=== PATIENT | female | born 1970 | race African-American/Black ===

== ENCOUNTER 2019-06-25 06:05 | Day surgery (SDC) | payer OTHER ==
[2019-06-24 17:16] VITALS: BMI 41.1
[2019-06-25] MEDS ORDERED: BUPIVACAINE HCL/PF 0.5% (5 MG/ML) 30 ML VIAL IJ ONE (07:11)
[2019-06-25] MEDS ORDERED: DEXAMETHASONE SOD PHOSPHATE/PF 10 MG/ML SDV ONE (07:11)
[2019-06-25] MEDS ORDERED: ROPIVACAINE HCL 0.5% 30ML VIAL ONE (07:11)
[2019-06-25] MEDS ORDERED: PROPOFOL 20 ML ONE (07:19)
[2019-06-25] MEDS ORDERED: SUCCINYLCHOLINE CHLORIDE 200 MG/10 ML SYRINGE ONE (07:20)
[2019-06-25] MEDS ORDERED: MIDAZOLAM HCL 2 MG/2 ML SINGLE DOSE VIAL ONE ×2 (07:20)
--- NOTE | 2019-06-25 07:52 | HP ---
Satellite [facility] - Past Medical History Allergies/Adverse Reactions: Allergies Allergy/AdvReac Type Severity Reaction Status Date / Time No Known Allergies Allergy Verified 06/24/19 17:16 ...LMP: 06/03/19 - Current Medications Current Medications: Home Medications Medication Instructions Recorded Atorvastatin Ca [Lipitor] 20 mg PO DAILY 06/24/19 Metformin HCl [Metformin HCl ER] 500 mg PO DAILY 06/24/19 Satellite Physical Exam - Physical Examination Vital Signs: Vital Signs Period Temp Pulse Resp BP Sys/Payne Pulse Ox Last 24 Hr 98.0 F 77 18 115/50 98
--- NOTE | 2019-06-25 08:13 | HP ---
Satellite [facility] - Chief Complaint Chief Complaint: right shoulder pain History Source: Patient - Past Medical History Allergies/Adverse Reactions: Allergies Allergy/AdvReac Type Severity Reaction Status Date / Time No Known Allergies Allergy Verified 06/24/19 17:16 ...LMP: 06/03/19 - Current Medications Current Medications: Home Medications Medication Instructions Recorded Atorvastatin Ca [Lipitor] 20 mg PO DAILY 06/24/19 Metformin HCl [Metformin HCl ER] 500 mg PO DAILY 06/24/19 Satellite Physical Exam - Physical Examination Vital Signs: Vital Signs Period Temp Pulse Resp BP Sys/Payne Pulse Ox Last 24 Hr 98.0 F 77 18 115/50 98 Extremities: Other (weakness with TDA right shoulder) Satellite Impression/Plan - Impression/Plan Impression: impingement right shoulder with posssible RC tear Operative Procedure: arthroscopy right shoulder with decompression and possible RC repair Date to be Performed: 06/25/19
[2019-06-25] MEDS ORDERED: ceFAZolin SODIUM 1 GM VIAL ONE (08:30)
[2019-06-25] MEDS ORDERED: ceFAZolin SODIUM 1 GM VIAL IVPB ONE (08:36)
[2019-06-25] MEDS ORDERED: DEXAMETHASONE SOD PHOSPHATE 4 MG/1 ML VIAL ONE (08:57)
--- NOTE | 2019-06-25 09:25 | OP ---
Operative Note - Note: Operative Date: 06/25/19 ([facility]) Pre-Operative Diagnosis: right shoulder rct Operation: right shoulder arthroscopy with RCR, SAD Post-Operative Diagnosis: Same as Pre-op Surgeon: Robert Smith Print Support Specialist: Sahil Garcia Anesthesiologist/CRAYON SORTING MACHINE FEEDER: Kuldip Tamayo Anesthesia: General, Local Specimens Removed: shavings Estimated Blood Loss (mls): 5 Operative Report Dictated: Yes
[2019-06-25] MEDS ORDERED: oxyCODONE HCL 5 MG TABLET PO PRN (09:33)
[2019-06-25] MEDS ORDERED: ONDANSETRON 4 MG/2 ML VIAL IVPUSH PRN (09:33)
[2019-06-25] MEDS ORDERED: LACTATED RINGERS SOLUTION 1,000 ML IV SCH (09:45)
[2019-06-25 10:52] VITALS: TEMP 97.4
[2019-06-25 12:55] VITALS: BP 129/74; PULSE 75
--- NOTE | 2019-06-25 14:45 | SPEC ---
DATE OF OPERATION: 06/25/2019 PREOPERATIVE DIAGNOSIS: Right rotator cuff tear. POSTOPERATIVE DIAGNOSIS: Right rotator cuff tear. PROCEDURE: Arthroscopy, right shoulder, subacromial decompression, and arthroscopic right rotator cuff repair with SpeedBridge. SURGICAL ATTENDING: Robert Smith MD COIL ASSEMBLER: JORDAN More ANESTHESIA: Regional and general. CLOSURE: An Arthrex SpeedBridge for rotator cuff, 3-0 nylon for skin. ESTIMATED BLOOD LOSS: Negligible. COMPLICATIONS: None. CONDITION: To the recovery room in stable condition. DESCRIPTION OF PROCEDURE: The patient was taken to the operating room on June 25, 2019. General and regional anesthesia was administered by the anesthesiologist. IV Kefzol was administered prophylactically prior to the case. The patient was placed in the beach chair position with all prominences well padded. The right shoulder area was prepped and draped in the usual sterile fashion. First, a diagnostic arthroscopy of the glenohumeral joint was made. Posterior portal was made 2 fingerbreadths below the acromion with a 15 blade followed by a blunt trocar. Circumferential exam of the glenohumeral joint revealed the following: Intact labrum circumferentially, intact glenoid and humeral head articular cartilage, intact biceps and biceps anchor, intact subscapularis through its insertion. Looking superiorly, there was a large rotator cuff tear. The fluid was drained from the shoulder, and the trocar was removed. The posterior trocar was redirected in the subacromial space. An accessory lateral and anterior portal were made with a 15 blade followed by a blunt trocar. The lateral portal was used as the working portal. Through this portal, an ArthroCare device was applied. This was used to debride the soft tissue in the subacromial aspect. The coracoacromial ligament was identified and detached off the anterior acromion and was visualized to drop inferiorly and was further debrided. The bone on the undersurface of the acromion was burred to the appropriate level giving appropriate height for the rotator cuff beneath. Looking inferiorly, there was a large rotator cuff tear, soft tissue encasing the rotator cuff, and the deltoid recess was debrided using ArthroCare device and the shaver. The bed on the greater tuberosity was burred to give a good bed for the double row SpeedBridge repair. A grasper was used to ensure that the rotator cuff was able to be reduced sufficiently to the greater tuberosity. The rotator cuff was freed on the bursal and the articular surface to allow more excursion of the tendon. Two anchors preloaded with FiberTape suture were placed on the articular margin, one more anteriorly, one more posteriorly. They were shuttled through the anterior portal with a grasper. Each limb was individually passed through the rotator cuff, two anteriorly and two posteriorly. One anterior limb and one posterior limb was delivered through the lateral portal. They were placed through the eyelet hole of the more lateral anchor, which was then malleted into place much more laterally, reducing the rotator cuff to the greater tuberosity. The swivel was then screwed into place. The sutures were then cut flush with the bone. Next, one anterior and one posterior limb that was remaining were shuttled from the anterior to the lateral portal. The sutures were placed through the eyelet hole of the anterior anchor, which was malleted on the anterior aspect of the greater tuberosity. After tensioning it, it was deployed the entire way and then screwed home giving an excellent reduction to the anterior portion of the rotator cuff. After the sutures were cut, the rotator cuff was probed and found to have good stability with excellent matting down of the rotator cuff to the greater tuberosity. The shoulder was taken through the range of motion and found to have good clearance on the undersurface of the acromion with good, solid repair. The shoulder was drained of the fluid. The portals were closed with 3-0 nylon suture. A sterile pressure dressing followed by a shoulder immobilizer was applied. The patient was awoken from anesthesia and transferred to recovery room in stable condition. No complications. Estimated blood loss negligible. Avery [id number]
--- NOTE | 2019-06-30 17:39 | PATH ---
Surgical Pathology Report Patient Name: ROBERT DAVIS Med. Rec. #: [id number] /Age/Gender: 1970 (Age: 48) / F Account: [id number] Location: [facility] Taken: 06/25/2019 Received: 06/25/2019 Reported: 06/30/2019 Physicians: Robert Smith M.D. Specimen(s) Received RIGHT SHOULDER SHAVINGS Clinical History Tear right shoulder Final Diagnosis SHOULDER SHAVINGS, RIGHT, ARTHROSCOPY, DECOMPRESSION, ROTATOR CUFF REPAIR: FRAGMENTS OF BENIGN CARTILAGE, BONE, DENSE FIBROCONNECTIVE TISSUE, ADIPOSE TISSUE, REACTIVE SYNOVIUM, AND SKELETAL MUSCLE. Electronically Signed Kriss Huston M.D. Gross Description Received in formalin, labeled "right shoulder shavings," is a 4.0 x 3.4 x 0.4 cm. aggregate of barraza-yellow soft tissue fragments. A personal service representative portion is submitted in one cassette. 06/26/2019 saudi06/26/2019
== END 2019-06-25 12:57 | disposition home or self-care (01) ==
LOC: JASU-SURG 06:05
PROVIDERS: ATTEND Orthopaedic Surgery
PROC: 0RNJ4ZZ Release Right Shoulder Joint, Percutaneous Endoscopic Approach (ICD-10-PCS; principal; 2019-06-25 08:41)
PROC: 0LQ14ZZ Repair Right Shoulder Tendon, Percutaneous Endoscopic Approach (ICD-10-PCS; 2019-06-25 08:41)
DX: M75.101 Unspecified rotator cuff tear or rupture of right shoulder, not specified as traumatic (principal); E11.9 Type 2 diabetes mellitus without complications; E66.9 Obesity, unspecified; Z79.84 Long term (current) use of oral hypoglycemic drugs
CPT/HCPCS: 82962; 84703; 88304-TC; 94760